=== PATIENT | female | born 1990 | race African-American/Black ===

== ENCOUNTER 2016-06-09 18:35 | Emergency (ER) | payer MEDICAID ==
[~2016-06-09] VITALS: Ht 167.6 cm; Wt 136.5 kg
[~2016-06-09 18:35] MED LIST: ALBU05
[2016-06-09 20:41] LABS: BASOPHILS % 0.4 % (0.0-2.0); EOSINOPHILS % 1.5 % (0.0-5.0); HEMATOCRIT. 39.1 % (36.0-48.0); HEMOGLOBIN. 13.1 g/dL (12.0-16.0); LYMPHOCYTES % 39.2 % (20.0-50.0); MEAN CORPUSCULAR HEMOGLOBIN 28.1 pg (28.0-32.0); MEAN CORPUSCULAR HGB CONC 33.5 g/dL (31.0-37.0); MEAN CORPUSCULAR VOLUME 83.9 fL (81.0-99.0); MEAN PLATELET VOLUME 7.3 fl (7.4-10.4); MONOCYTES % 7.4 % (2.0-8.0); NEUTROPHILS % 51.5 % (40.0-76.0); PLATELET 303 x1000/uL (130-400); RED BLOOD CELL COUNT 4.66 mill/uL (4.2-5.4); RED CELL DISTRIBUTION WIDTH 14.5 % (11.6-14.6)
[2016-06-10 00:04] VITALS: BP 138/90
== END 2016-06-10 00:08 | disposition home or self-care (01) ==
LOC: ER 18:38
DX: J06.9 Acute upper respiratory infection, unspecified (principal); J45.909 Unspecified asthma, uncomplicated
CPT/HCPCS: 36415; 71010; 81025; 85025; 99285

== ENCOUNTER 2018-10-28 10:24 | Emergency (ER) | payer MEDICAID ==
[~2018-10-28] VITALS: Ht 162.6 cm; Wt 141.0 kg
[2018-10-28] MEDS ORDERED: KETOROLAC 30MG/ML VIAL IV STA (12:26)
[2018-10-28] MEDS ORDERED: SODIUM CHLORIDE 0.9% 1,000 ML IV ONE (12:26)
[2018-10-28] MEDS ORDERED: METOCLOPRAMIDE HCL 10MG/2ML VIAL IV ONE (12:30)
[2018-10-28] MEDS ORDERED: DIPHENHYDRAMINE 50MG/ML VIAL IV ONE (12:30)
[2018-10-28 13:00] LABS: BASOPHILS % 0.4 % (0.0-2.0); EOSINOPHILS % 2.1 % (0.0-5.0); HEMATOCRIT. 38.4 % (36.0-48.0); HEMOGLOBIN. 12.7 g/dL (12.0-16.0); LYMPHOCYTES % 37.6 % (20.0-50.0); MEAN CORPUSCULAR VOLUME 84.3 fL (81.0-99.0); MEAN PLATELET VOLUME 7.3 fl (7.4-10.4); MONOCYTES % 6.7 % (2.0-8.0); NEUTROPHILS % 53.2 % (40.0-76.0); PLATELET 305 x1000/uL (130-400); RED BLOOD CELL COUNT 4.56 mill/uL (4.2-5.4); RED CELL DISTRIBUTION WIDTH 14.6 % (11.6-14.6)
[2018-10-28 13:05] LABS: CHLORIDE 107 mEq/L (98-107); PROTHROMBIN TIME 10.2 sec (9.6-11.0)
[2018-10-28 13:14] LABS: CLARITY URINE CLEAR (CLEAR); COLOR URINE YELLOW (YELLOW); KETONES URINE NEGATIVE (NEGATIVE); LEUKOCYTE ESTERASE URINE NEGATIVE (NEGATIVE); NITRITE URINE NEGATIVE (NEGATIVE); OCCULT BLOOD URINE NEGATIVE (NEGATIVE); PH URINE 7.5 (4.5-8.0); PROTEIN URINE NEGATIVE (NEGATIVE); SPECIFIC GRAVITY URINE 1.015 (1.005-1.030); UROBILINOGEN URINE 0.2 E.U./dL (0.2-1.0)
[2018-10-28 15:06] VITALS: BP 105/78
== END 2018-10-28 15:40 | disposition home or self-care (01) ==
LOC: ER 10:24
DX: R51 Headache (principal); R11.0 Nausea; R68.83 Chills (without fever); J34.89 Other specified disorders of nose and nasal sinuses; H53.149 Visual discomfort, unspecified; J45.909 Unspecified asthma, uncomplicated; Z98.890 Other specified postprocedural states
CPT/HCPCS: 36415; 80053; 81003; 81025; 85025; 85610; 96374; 96375; 99283; J1200; J1885; J2765; J7030

== ENCOUNTER 2019-04-03 19:15 | Emergency (ER) | payer MEDICAID ==
[~2019-04-03] VITALS: Ht 165.1 cm; Wt 141.0 kg
[2019-04-03] MEDS ORDERED: MECLIZINE 25MG TABLET PO ONE (22:15)
[2019-04-04 00:29] LABS: CLARITY URINE CLEAR (CLEAR); COLOR URINE YELLOW (YELLOW); KETONES URINE TRACE (NEGATIVE); LEUKOCYTE ESTERASE URINE TRACE (NEGATIVE); NITRITE URINE NEGATIVE (NEGATIVE); OCCULT BLOOD URINE NEGATIVE (NEGATIVE); PH URINE 6.5 (4.5-8.0); PROTEIN URINE NEGATIVE (NEGATIVE); SPECIFIC GRAVITY URINE 1.021 (1.005-1.030)
[2019-04-04 01:40] VITALS: BP 126/78
== END 2019-04-04 01:43 | disposition home or self-care (01) ==
LOC: ER 19:15
DX: R42 Dizziness and giddiness (principal); J45.909 Unspecified asthma, uncomplicated; Z98.890 Other specified postprocedural states
CPT/HCPCS: 81003; 81025; 99283; J8597; Z7610

== ENCOUNTER 2020-07-09 10:38 | Emergency (ER) | payer MEDICAID ==
[~2020-07-09] VITALS: Ht 165.1 cm; Wt 145.0 kg
[2020-07-09] MEDS ORDERED: ACETAMINOPHEN 325MG TABLET PO ONE (11:45)
[2020-07-09 13:13] VITALS: BP 134/86
[2020-07-09] MEDS ORDERED: AMOX1TAB16 MT (13:59)
== END 2020-07-09 14:18 | disposition home or self-care (01) ==
LOC: ER 11:02
DX: O26.892 Other specified pregnancy related conditions, second trimester (principal); J45.909 Unspecified asthma, uncomplicated; Z98.890 Other specified postprocedural states; Z3A.18 18 weeks gestation of pregnancy
CPT/HCPCS: 76805; 81025; 99284

== ENCOUNTER 2021-03-28 16:19 | Emergency (ER) | payer MEDICAID ==
[~2021-03-28] VITALS: Ht 165.1 cm; Wt 145.0 kg
[~2021-03-28 16:19] MED LIST changes: +AMOX1TAB16 MT
[2021-03-28 16:33] VITALS: BP 155/96
== END 2021-03-28 17:20 | disposition home or self-care (01) ==
LOC: ER 16:19
DX: U07.1 COVID-19 (principal); J45.909 Unspecified asthma, uncomplicated; Z98.890 Other specified postprocedural states
CPT/HCPCS: 87635; 93005; 99283

== ENCOUNTER 2021-08-02 17:56 | Emergency (ER) | payer MEDICAID ==
[~2021-08-02] VITALS: Ht 167.6 cm; Wt 139.0 kg
[2021-08-02 23:16] LABS: BASOPHILS % 0.5 % (0.0-2.0); HEMATOCRIT. 37.7 % (36.0-48.0); HEMOGLOBIN. 12.7 g/dL (12.0-16.0); LYMPHOCYTES % 36.5 % (20.0-50.0); MEAN CORPUSCULAR HEMOGLOBIN 28.9 pg (28.0-32.0); MEAN PLATELET VOLUME 7.2 fl (7.4-10.4); MONOCYTES % 6.1 % (2.0-8.0); NEUTROPHILS % 55.9 % (40.0-76.0); PLATELET 316 x1000/uL (130-400); RED BLOOD CELL COUNT 4.38 mill/uL (4.2-5.4); RED CELL DISTRIBUTION WIDTH 14.5 % (11.6-14.6)
[2021-08-02 23:25] LABS: CHLORIDE 108 mEq/L (98-107)
[2021-08-02 23:34] LABS: HCG SCREEN NEGATIVE
[2021-08-03 00:19] LABS: CLARITY URINE CLOUDY (CLEAR); COLOR URINE YELLOW (YELLOW); KETONES URINE 3+ (NEGATIVE); LEUKOCYTE ESTERASE URINE NEGATIVE (NEGATIVE); NITRITE URINE NEGATIVE (NEGATIVE); OCCULT BLOOD URINE NEGATIVE (NEGATIVE); PROTEIN URINE NEGATIVE (NEGATIVE); SPECIFIC GRAVITY URINE 1.026 (1.005-1.030); UROBILINOGEN URINE 0.2 E.U./dL (0.2-1.0)
[2021-08-03] MEDS ORDERED: ACET-2708 MT (01:44)
[2021-08-03] MEDS ORDERED: BACL-141 MT (01:44)
[2021-08-03 01:53] VITALS: BP 155/63
== END 2021-08-03 01:54 | disposition home or self-care (01) ==
LOC: ER 17:56
DX: R07.89 Other chest pain (principal); M79.602 Pain in left arm; M79.606 Pain in leg, unspecified; R03.0 Elevated blood-pressure reading, without diagnosis of hypertension; J45.909 Unspecified asthma, uncomplicated; Z98.890 Other specified postprocedural states; Z88.8 Allergy status to other drugs, medicaments and biological substances; Z88.6 Allergy status to analgesic agent
CPT/HCPCS: 36415; 71045; 80053; 81003; 84484; 84703; 85025; 93005; 93970; 99285

== ENCOUNTER 2021-12-07 09:22 | Emergency (ER) | payer MEDICAID ==
[~2021-12-07] VITALS: Ht 167.6 cm; Wt 133.0 kg
[~2021-12-07 09:22] MED LIST changes: +ACET-2708 MT; +BACL-141 MT
[2021-12-07 09:40] VITALS: BP 126/96
[2021-12-07 12:08] LABS: BASOPHILS % 0.2 % (0.0-2.0); EOSINOPHILS % 0.9 % (0.0-5.0); HEMATOCRIT. 36.4 % (36.0-48.0); LYMPHOCYTES % 31.8 % (20.0-50.0); MEAN CORPUSCULAR VOLUME 85.3 fL (81.0-99.0); MEAN PLATELET VOLUME 7.1 fl (7.4-10.4); NEUTROPHILS % 59.1 % (40.0-76.0); PLATELET 331 x1000/uL (130-400); RED BLOOD CELL COUNT 4.27 mill/uL (4.2-5.4); RED CELL DISTRIBUTION WIDTH 14.3 % (11.6-14.6)
[2021-12-07 12:28] LABS: CHLORIDE 107 mEq/L (98-107)
[2021-12-07] MEDS ORDERED: IOHEXOL-350 100 ML BOTTLE ONE (17:23)
== END 2021-12-07 18:23 | disposition home or self-care (01) ==
LOC: ER 09:22
DX: R06.02 Shortness of breath (principal); R09.02 Hypoxemia; J45.909 Unspecified asthma, uncomplicated; Z98.890 Other specified postprocedural states; Z88.6 Allergy status to analgesic agent
CPT/HCPCS: 36415; 71045; 71275; 80053; 84484; 85025; 85379; 93005; 99285; Q9967

== ENCOUNTER 2023-11-16 03:31 | Emergency (ER) | payer MEDICAID, OTHER ==
[~2023-11-16] VITALS: Ht 172.7 cm; Wt 120.0 kg
[2023-11-16 03:34] VITALS: O2SAT 99
[2023-11-16 05:31] LABS: HCG SCREEN NEGATIVE
[2023-11-16 06:01] LABS: BASOPHILS % 0.4 % (0.0-2.0); DIFFERENTIAL COMMENT 0; EOSINOPHILS % 0.6 % (0.0-5.0); HEMATOCRIT. 32.9 % (36.0-48.0); HEMOGLOBIN. 10.5 g/dL (12.0-16.0); LYMPHOCYTES % 30.9 % (20.0-50.0); MEAN CORPUSCULAR HEMOGLOBIN 24.6 pg (28.0-32.0); MEAN CORPUSCULAR HGB CONC 31.8 g/dL (31.0-37.0); MEAN CORPUSCULAR VOLUME 77.4 fL (81.0-99.0); MEAN PLATELET VOLUME 7.2 fl (7.4-10.4); MONOCYTES % 7.7 % (2.0-8.0); NEUTROPHILS % 60.4 % (40.0-76.0); PLATELET 384 x1000/uL (130-400); RED BLOOD CELL COUNT 4.25 mill/uL (4.2-5.4); WHITE BLOOD COUNT 8.3 x1000/uL (4.5-11.0)
[2023-11-16 06:11] LABS: CHLORIDE 107 mEq/L (98-107); POTASSIUM 3.4 mEq/L (3.5-5.1); SODIUM 139 mEq/L (136-145)
[2023-11-16 06:12] LABS: CALCIUM 9.1 mg/dL (8.7-10.4); CARBON DIOXIDE 26 mEq/L (21-32)
[2023-11-16 06:17] LABS: GLUCOSE 89 mg/dL (70-105); UREA NITROGEN BLOOD 13 mg/dL (9-23)
[2023-11-16] MEDS: SODIUM CHLORIDE 0.9% 1,000 ML IV ONE (06:20)
[2023-11-16 06:38] LABS: TROPONIN I HIGH SENSITIVITY < 4 ng/L (3.0-34)
[2023-11-16 07:35] VITALS: BP 126/76; PULSE 65; RESP 15; TEMP 36.72516; O2SAT 100
== END 2023-11-16 07:43 | disposition home or self-care (01) ==
LOC: ER 03:31
DX: R07.9 Chest pain, unspecified (principal); R42 Dizziness and giddiness; J45.909 Unspecified asthma, uncomplicated; Z98.890 Other specified postprocedural states; Z88.6 Allergy status to analgesic agent; Z88.8 Allergy status to other drugs, medicaments and biological substances
CPT/HCPCS: 99285; 71045; 80048; 84703; 85025; 84484; 36415; 93005; J7030

== ENCOUNTER 2024-05-06 10:11 | Emergency (ER) | payer MEDICAID, OTHER ==
[~2024-05-06] VITALS: Ht 167.6 cm; Wt 140.0 kg
[2024-05-06 10:25] VITALS: O2SAT 100
[2024-05-06 11:45] LABS: BASOPHILS % 0.4 % (0.0-2.0); DIFFERENTIAL COMMENT 0; EOSINOPHILS % 1.2 % (0.0-5.0); HEMATOCRIT. 32.5 % (36.0-48.0); HEMOGLOBIN. 10.1 g/dL (12.0-16.0); LYMPHOCYTES % 38.3 % (20.0-50.0); MEAN CORPUSCULAR HEMOGLOBIN 23.4 pg (28.0-32.0); MEAN CORPUSCULAR HGB CONC 30.9 g/dL (31.0-37.0); MEAN CORPUSCULAR VOLUME 75.6 fL (81.0-99.0); MEAN PLATELET VOLUME 6.7 fl (7.4-10.4); MONOCYTES % 8.1 % (2.0-8.0); PLATELET 394 x1000/uL (130-400); RED CELL DISTRIBUTION WIDTH 17.6 % (11.6-14.6); WHITE BLOOD COUNT 6.5 x1000/uL (4.5-11.0)
[2024-05-06 11:47] LABS: CHLORIDE 109 mEq/L (98-107); POTASSIUM 4.5 mEq/L (3.5-5.1); SODIUM 140 mEq/L (136-145)
[2024-05-06 11:48] LABS: CARBON DIOXIDE 25 mEq/L (21-32)
[2024-05-06 11:49] LABS: CALCIUM 9.3 mg/dL (8.7-10.4)
[2024-05-06 11:53] LABS: CREATININE 0.9 mg/dL (0.6-1.0); GLUCOSE 91 mg/dL (70-105)
[2024-05-06 11:54] LABS: UREA NITROGEN BLOOD 9 mg/dL (9-23)
[2024-05-06 11:55] LABS: ALANINE AMINOTRANSFERASE < 7 IU/L (10-49); ALBUMIN 3.9 g/dL (3.2-4.8); ASPARTATE AMINOTRANSFERASE 13 IU/L (<34)
[2024-05-06 11:56] LABS: BILIRUBIN TOTAL 0.5 mg/dL (0.1-1.0); PROTEIN TOTAL 7.8 g/dL (6.0-8.3)
[2024-05-06 12:04] LABS: HCG SCREEN NEGATIVE
[2024-05-06] MEDS: MECLIZINE 25MG TABLET PO ONE (13:01)
[2024-05-06] MEDS ORDERED: MECL-299 MT (13:56)
[2024-05-06 14:39] VITALS: BP 123/74; PULSE 75; RESP 18; TEMP 37.1; O2SAT 100
== END 2024-05-06 14:40 | disposition home or self-care (01) ==
LOC: ER 10:11
DX: R42 Dizziness and giddiness (principal); J45.909 Unspecified asthma, uncomplicated; Z88.6 Allergy status to analgesic agent; Z98.890 Other specified postprocedural states
CPT/HCPCS: 99284; 70450; 80053; 84703; 85025; 36415; 93005; J8597

== ENCOUNTER 2024-09-30 12:57 | Emergency (ER) | payer OTHER, MEDICAID ==
[~2024-09-30] VITALS: Ht 162.6 cm; Wt 138.0 kg
[~2024-09-30 12:57] MED LIST changes: +MECL-299 MT
[2024-09-30 13:08] VITALS: O2SAT 100
[2024-09-30 15:45] VITALS: TEMP 36.7
[2024-09-30 17:06] LABS: BASOPHILS % 0.4 % (0.0-2.0); EOSINOPHILS % 2.4 % (0.0-5.0); HEMATOCRIT. 31.7 % (36.0-48.0); HEMOGLOBIN. 9.8 g/dL (12.0-16.0); LYMPHOCYTES % 34.9 % (20.0-50.0); MEAN PLATELET VOLUME 6.8 fl (7.4-10.4); MONOCYTES % 7.0 % (2.0-8.0); NEUTROPHILS % 55.3 % (40.0-76.0); PLATELET 435 x1000/uL (130-400); RED BLOOD CELL COUNT 4.23 mill/uL (4.2-5.4); RED CELL DISTRIBUTION WIDTH 17.8 % (11.6-14.6)
[2024-09-30 17:22] LABS: CREATININE 0.9 mg/dL (0.6-1.0); UREA NITROGEN BLOOD 5 mg/dL (9-23)
[2024-09-30 17:24] LABS: ASPARTATE AMINOTRANSFERASE 15 IU/L (<34); TROPONIN I HIGH SENSITIVITY < 4 ng/L (3.0-34)
[2024-09-30 17:25] LABS: BILIRUBIN DIRECT 0.2 mg/dL (<=3.0); BILIRUBIN TOTAL 0.5 mg/dL (0.1-1.0); PROTEIN TOTAL 7.4 g/dL (6.0-8.3)
[2024-09-30 17:28] LABS: HCG SCREEN NEGATIVE; INR 0.9
[2024-09-30] MEDS ORDERED: DIPHENHYDRAMINE 50MG/ML VIAL IV NR (18:00)
[2024-09-30] MEDS ORDERED: IOHEXOL-350 100 ML BOTTLE ONE (19:58)
[2024-09-30 20:21] VITALS: BP 117/76; PULSE 67; RESP 12; O2SAT 100
== END 2024-09-30 20:32 | disposition home or self-care (01) ==
LOC: ER 13:23
DX: B34.9 Viral infection, unspecified (principal); J45.909 Unspecified asthma, uncomplicated; Z88.6 Allergy status to analgesic agent; Z79.899 Other long term (current) drug therapy
CPT/HCPCS: 99285; 93970; 71275; 71045; 80076; 80048; 84703; 83880; 83690; 85025; 85610; 84484; 36415; 93005; Q9967; J1200